=== PATIENT | female | born 1950 | race African-American/Black ===

== ENCOUNTER 2016-11-23 14:50 | Emergency (ER) | payer MEDICARE, OTHER ==
[~2016-11-23 14:50] MED LIST: ABILIFY10 PO; ABILIFY20 MG PO; ADVIL PO; AMB10 PO; AMITIZA24 PO; ART2 PO; ASA5GR PO; AT25 PO; ATV.5 PO; CELEXA20 PO; CELEXA40 MG PO; COG2 PO; ENDOCET1 TA1 PO; FLEXERIL5 MG PO; KLONO5 PO; LEVOTHYROXIN50 MCG PO; LINZESS 290 M290 MCG PO; METHOC500B PO; MOBIC15 MG PO; NEUR100 PO; NEUR300 PO; NORCO1 TA1 PO; NORV5 PO; OXYCOD PO; PERCOCET1 TA2 PO; PLAVIX PO; PR25 PO; PRAVAC PO; PRAVACHOL40 MG PO; PRILOSEC40 MG PO; PRIN10 PO; PROAIR HFA INH; PROTONIX PO; RANITIDINE300 MG PO; REM15 PO; SEROQUEL XR200 MG PO; SEROQUEL XR300 MG PO; SEROQUEL400 MG PO; SEROQUEL50 MG PO; SUCR PO; SYN.05 PO; TETRABENAZINE PO; TRAZ100 PO; ZANTAC300 MG PO; ZOCOR20 PO; ZOFRAN8 PO; [UNRECOGNIZED DRUG - OTHER]; [UNRECOGNIZED DRUG - OTHER] PO
== END 2016-11-23 15:40 | disposition home or self-care (01) ==
LOC: ER 14:50
DX: Z77.098 Contact with and (suspected) exposure to other hazardous, chiefly nonmedicinal, chemicals (principal); I10 Essential (primary) hypertension; F32.9 Major depressive disorder, single episode, unspecified; F20.9 Schizophrenia, unspecified; Z88.1 Allergy status to other antibiotic agents; Z88.8 Allergy status to other drugs, medicaments and biological substances; Z79.899 Other long term (current) drug therapy
CPT/HCPCS: 99284